=== PATIENT | female | born 1985 | race Hispanic/Latino ===

== ENCOUNTER 2022-05-28 10:48 | Emergency (ER) | payer SELFPAY ==
[2022-05-28 10:50] VITALS: BP 116/66; PULSE 72; RESP 14; TEMP 36.4; O2SAT 100; BMI 25.8
--- NOTE | 2022-05-28 11:19 | EDS_ITS ---
HPI HPI - URI History of Present Illness Chief Complaint: Cold Sx Detail of Chief Complaint: Upper respiratory symptoms for 1 week Informant: patient Onset/Context/Timing Onset: Weeks Context: Sudden Onset Timing: Continuous and Waxes and wanes Quality: Upper respiratory with cough, congestion, aches Location: Upper respiratory Current Severity: Mild Maximum Severity: Moderate Worsened by: - (Nothing); Not Worsened By Swallowing, Eating Solids or Drinking Liquids Relieved by: Not Relieved By Tylenol or NSAIDs Associated Symptoms Associated Symptoms: Positive for Nasal Congestion, Headache, Myalgias and Productive Cough (Whitish colored sputum); Negative for Sinus Pressure, Nausea, Vomiting, Diarrhea, Shortness of Breath, Chest Pain, Nonproductive cough or Hemoptysis Narrative Narrative: Patient is a 36-year-old [id number] adult who is a non-smoker presents with upper respiratory symptoms started 1 week ago. [employer] service was used. Patient has symptoms consistent with upper respiratory infection. Headache, congestion, sore throat, phlegm and cough. There are no other complaints. Prior similar symptoms: No Recent Illness/Hospitalization: No ROS ROS ED Constitutional Constitutional ED: Reports fever(s) and subjective; Denies chills, sweats or weight loss Eyes Eyes: Denies blurry vision, change in vision or diplopia ENT ENT ED: Reports rhinorrhea and sore throat; Denies ear pain Cardiovascular Cardiovascular: Denies chest pain, orthopnea, palpitations, paroxysmal nocturnal dyspnea or racing heartbeat Respiratory/Chest Respiratory/Chest: Reports cough and sputum; Denies dyspnea, dyspnea on exertion, orthopnea or paroxysmal nocturnal dyspnea Gastrointestinal Gastrointestinal: Denies abdominal pain, constipation, diarrhea, melena, nausea or vomiting Genitourinary Genitourinary ED: Denies dysuria, hematuria or urinary frequency Musculoskeletal Musculoskeletal: Reports myalgias; Denies arthralgias, back pain or neck pain Integumentary Denies Abrasions or rash Neurologic Neurologic: Reports headache(s); Denies paresthesias or weakness Hematologic/Lymphatic Hematologic/Lymphatic: Denies easy bleeding or easy bruising PFSH PFSH no medical history Allergy/AdvReac Type Severity Reaction Status Date / Time dexamethasone [From Decadron] Allergy Hives Verified 05/28/22 10:53 no surgical history Social History (Updated 05/28/22 @ 11:[address] David Nolen MD) household members: family Smoking Status: Never smoker substance use type: does not use EXAM Physical Exam Const Vital Signs: 05/28/22 10:50 Temperature 97.5 F L Temperature Source Temporal Pulse Rate 72 Respiratory Rate 14 Blood Pressure 116/66 Blood Pressure Mean 82 Pulse Ox 100 Oxygen Delivery Method Room Air Positive well nourished, well developed and obese General Appearance ED: well developed and NAD; Negative for pallor Nutritional Appearance: obese HEENT Reports moist mucous membranes normocephalic and atraumatic Throat: posterior oropharynx normal Eyes PERRL and EOMs intact bilaterally General Eye ED: Negative for pale conjunctiva or scleral icterus Neck no lymphadenopathy, supple, no meningeal signs and no JVD Resp normal respiratory effort and clear to auscultation bilaterally Cardio S1 normal heart sound, S2 normal heart sound and no murmurs Rate: regular rate Rhythm: regular rhythm Back/Spine no CVA tenderness Extremity normal to inspection and full ROM Neuro oriented x3, CN's II-XII intact bilaterally and no sensory deficits noted Sensorium / Orientation: alert Psych mental status grossly normal Skin General Skin Exam: Negative for jaundice or pallor Lesions: no lesions Rashes: no rashes MDM MDM MDM Narrative Medical decision making narrative: Patient's history and physical consistent with acute upper respiratory infection with cough and congestion. Treatment is symptomatic. Since patient does not have a local doctor she was referred to Dr. Jackson Discharge Plan Triage Chief Complaint: Cold Sx ED Provider: David Nolen Dx/Rx/DC Orders Clinical Impression: Upper respiratory infection with cough and congestion Instructions: ED URI, Viral, No Abx (Adult) Referrals: Elizabeth Jackson DO [Med Staff - Active Staff] - 10-14 Days if not better Print Language: Chinese Disposition Disposition: Home, Self Care
[2022-05-28 11:52] VITALS: BP 124/66; PULSE 59; RESP 16; O2SAT 98
[2022-05-28 11:53] VITALS: O2SAT 98
== END 2022-05-28 11:55 | disposition home or self-care (01) ==
LOC: ED 11:44
PROVIDERS: Emergency Provider Emergency Medicine; Visit Provider Emergency Medicine
DX: J06.9 Acute upper respiratory infection, unspecified (principal); R51.9 Headache, unspecified; E66.9 Obesity, unspecified
CPT/HCPCS: 99283